=== PATIENT | male | born 1980 | race Caucasian/White ===

== ENCOUNTER 2017-11-22 14:11 | Emergency (ER) | payer MEDICAID ==
[~2017-11-22] VITALS: Ht 604 cm; Wt 132.0 kg
[~2017-11-22 14:11] MED LIST: CEPH500C5 PO; IBUP-1051 PO; NO HOME MEDS
[2017-11-22 14:13] VITALS: BP 122/74
[2017-11-22] MEDS ORDERED: silver sulfadiazine cream 400gm jar TP STA (14:49)
[2017-11-22] MEDS ORDERED: silver sulfadiazine cream 50gm TP STA (15:41)
== END 2017-11-22 15:58 | disposition home or self-care (01) ==
LOC: ER 14:11
DX: T23.231D Burn of second degree of multiple right fingers (nail), not including thumb, subsequent encounter (principal); T21.22XD Burn of second degree of abdominal wall, subsequent encounter; Z56.0 Unemployment, unspecified; X10.2XXD Contact with fats and cooking oils, subsequent encounter
CPT/HCPCS: 99282; A6255